=== PATIENT | female | born 1955 | race Caucasian/White ===

== ENCOUNTER → 2019-12-01 | Outpatient (CLI) | payer OTHER ==
[2019-12-01 11:45] LABS: BILIRUBIN,TOTAL 1.1 MG/DL (0.1-1.0); BUN/CREATININE RATIO 20; CALCIUM 9.7 MG/DL (8.5-10.1); CARBON DIOXIDE 26 MMOL/L (21-32); CHLORIDE 101 MMOL/L (98-107); CREATININE SERUM 0.93 MG/DL (0.60-1.30); GFR ESTIMATED > 60; GLUCOSE 105 MG/DL (70-105); POTASSIUM 3.8 MMOL/L (3.6-5.0); SODIUM 140 MMOL/L (135-145)
[2019-12-01 11:46] LABS: ALANINE AMINOTRANSFERASE 23 U/L (0-55); ALBUMIN 4.5 GM/DL (3.2-4.5); ALKALINE PHOSPHATASE 91 U/L (40-136); TOTAL PROTEIN 7.3 GM/DL (6.4-8.2)
[2019-12-01 14:50] LABS: CHOLESTEROL 160 MG/DL (< 200); HDL CHOLESTEROL 39 MG/DL (40-60); TRIGLYCERIDES 175 MG/DL (<150); VLDL CHOLESTEROL 35 MG/DL (5-40)
== END ==
LOC: LAB FS 10:30
PROVIDERS: ATTEND Family Medicine
DX: E03.9 Hypothyroidism, unspecified (principal); E78.5 Hyperlipidemia, unspecified
CPT/HCPCS: 36415; 80053; 80061; 84443

== ENCOUNTER 2020-02-09 05:34 | Outpatient (RCR) | payer OTHER ==
[~2020-02-09] VITALS: Ht 170.2 cm; Wt 78.6 kg
[~2020-02-09 05:34] MED LIST: ATOR10TA66 PO; CETI10TA21 PO; HYDR12.56 PO; LEVO112T2 PO; MAGN250T2 PO; OMEP20TA7 PO; OMG1KC PO
== END 2020-02-09 13:38 | disposition home or self-care (01) ==
LOC: PREOP 05:34
PROVIDERS: ATTEND Surgery
DX: Z01.812 Encounter for preprocedural laboratory examination (principal); Z20.828 Contact with and (suspected) exposure to other viral communicable diseases; R10.13 Epigastric pain
CPT/HCPCS: 87635

== ENCOUNTER 2020-02-13 08:05 | Day surgery (SDC) | payer OTHER ==
[~2020-02-13] VITALS: Ht 170.2 cm; Wt 78.6 kg
[2020-02-13] MEDS ORDERED: LACTATED RINGERS 1,000 ML IV STA (08:06)
[2020-02-13] MEDS ORDERED: LACTATED RINGERS 1,000 ML IV ONE (08:11)
[2020-02-13] MEDS ORDERED: HURRICAINE EXT TUBE (BENZOCAINE) XX PRN (08:15)
[2020-02-13 08:20] VITALS: BP 158/87
--- NOTE | 2020-02-13 08:24 | Progress Note-Pre Operative ---
Pre-Operative Progress Note H&P Reviewed The H&P was reviewed, patient examined and no changes noted. Time Seen by Provider: 08:20 Date H&P Reviewed: Feb 13, 2020 Time H&P Reviewed: 08:15 Pre-Operative Diagnosis: Epigastric Abd pain MAXI GU DO Feb 13, 2020 08:24
[2020-02-13] MEDS ORDERED: PROPOFOL INJECTION 50 ML IV ONE (08:51)
[2020-02-13] MEDS ORDERED: HURRICAINE EXT TUBE (BENZOCAINE) ONE (08:52)
[2020-02-13] MEDS ORDERED: MIDAZOLAM 2 MG/2 ML (VERSED) VIAL ONE (08:52)
--- OUTSIDE RECORDS SUMMARY | 2020-02-13 08:52 | XMS REPORT | Continuity of Care Document ---
Author Author [facility] Organization [facility] Address Unknown Phone Unavailable Care Team Providers Care A P Mechanic Name Role Phone AMADA MONTERO MD PP Insurance Providers Payer Name Policy Number Subscriber Name Relationship [employer] [id number] Courtney Jeong S 01 Self / Same As Patient Problems No Known Problems or Medical conditions. Allergies, Adverse Reactions, Alerts No known allergies Medications No known medications Response Recorded Date/Time Status not known Unknown Results No Known Relevant Diagnostic Tests, Laboratory Data and/or Discharge Summary.
--- OUTSIDE RECORDS SUMMARY | 2020-02-13 08:52 | XMS REPORT | Continuity of Care Document ---
Author Organization Unknown Address Unknown Phone Unavailable Allergies Active Description Code Type Severity Reaction Onset Reported/Identified Relationship to Patient Clinical Status Yes hydrocodone [id number] Drug Aller gy Unknown Hives 02/08/2020 Medications There is no data. Problems Date Dx Coded Attending Type Code Diagnosis Diagnosed By 12/02/2019 ANGEL KING, NETTIE Carlos Ot E03 .9 HYPOTHYROIDISM, UNSPECIFIED 12/02/2019 ANGEL KING, NETTIE Carlos Ot E78 .5 HYPERLIPIDEMIA, UNSPECIFIED 12/12/2019 ANGEL KING, NETTIE Carlos Ot E03 .9 HYPOTHYROIDISM, UNSPECIFIED 12/12/2019 ANGEL KING, NETTIE Carlos Ot E78 .5 HYPERLIPIDEMIA, UNSPECIFIED Procedures There is no data. Results Test Result Range TSH - 01/03/19 15:54 TSH 0.13 mIU/L 0.40-4.50 LIPID PANEL - 07/05/19 11:01 CHOLESTEROL, TOTAL 173 mg/dL <200 HDL CHOLESTEROL 46 mg/dL >50 TRIGLYCERIDES 130 mg/dL <150 LDL-CHOLESTEROL 104 mg/dL (calc) NRG CHOL/HDLC RATIO 3.8 (calc) <5.0 NON HDL CHOLESTEROL 127 mg/dL (calc) <13 0 CMP - 07/05/19 11:01 GLUCOSE 96 mg/dL 65-99 UREA NITROGEN (BUN) 18 mg/dL 7-25 CREATININE 0.81 mg/dL 0.50-0.99 eGFR NON-AFR. BELGIAN 78 mL/min/1.73m2 > OR = 60 eGFR 90 mL/min/1.73m2 > OR = 60 BUN/CREATININE RATIO NOT APPLICABLE (calc) 6-22 SODIUM 137 mmol/L 135-146 POTASSIUM 3.9 mmol/L 3.5-5.3 CHLORIDE 102 mmol/L 98-110 CARBON DIOXIDE 29 mmol/L 20-32 CALCIUM 9.4 mg/dL 8.6-10.4 PROTEIN, TOTAL 6.9 g/dL 6.1-8.1 ALBUMIN 4.3 g/dL 3.6-5.1 GLOBULIN 2.6 g/dL (calc) 1.9-3.7 ALBUMIN/GLOBULIN RATIO 1.7 (calc) 1.0-2. 5 BILIRUBIN, TOTAL 1.3 mg/dL 0.2-1.2 ALKALINE PHOSPHATASE 81 U/L 33-130 AST 16 U/L 10-35 ALT 22 U/L 6-29 CBC - 07/05/19 11:01 WHITE BLOOD CELL COUNT 4.9 Thousand/uL 3 .8-10.8 RED BLOOD CELL COUNT 4.66 Million/uL 3.8 0-5.10 HEMOGLOBIN 13.3 g/dL 11.7-15.5 HEMATOCRIT 39.4 % 35.0-45.0 MCV 84.5 fL 80.0-100.0 MCH 28.5 pg 27.0-33.0 MCHC 33.8 g/dL 32.0-36.0 RDW 13.2 % 11.0-15.0 PLATELET COUNT 287 Thousand/uL 140-400 MPV 10.7 fL 7.5-12.5 ABSOLUTE NEUTROPHILS 2832 cells/uL 1500- 7800 ABSOLUTE LYMPHOCYTES 1397 cells/uL 850-3 900 ABSOLUTE MONOCYTES 505 cells/uL 200-950 ABSOLUTE EOSINOPHILS 147 cells/uL 15-500 ABSOLUTE BASOPHILS 20 cells/uL 0-200 NEUTROPHILS 57.8 % NRG LYMPHOCYTES 28.5 % NRG MONOCYTES 10.3 % NRG EOSINOPHILS 3.0 % NRG BASOPHILS 0.4 % NRG TSH - 07/05/19 11:01 TSH 0.09 mIU/L 0.40-4.50 HEP C ANTIBODY - 07/19/19 13:05 HEPATITIS C ANTIBODY NON-REACTIVE NON-R EACTIVE SIGNAL TO CUT-OFF 0.01 <1.00 Coronavirus SARS-CoV-2 SO 2018 - 0 07:56 Coronavirus Ab [Units/volume] in Serum Negative Negative Encounters ACCT No. Visit Date/Time Discharge Status Pt. Type Provider Facility Loc./Unit Complaint [id number] 07/19/2019 11:20:00 07/19/2019 23:59: 59 CLS Outpatient [facility] [id number] 07/19/2019 11:20:00 Document Registration [id number] 07/05/2019 09:40:00 Document Registration [id number] 01/03/2019 15:40:00 Document Registration [id number] 02/09/2020 05:34:00 13:38:00 DIS Outpatient MAXI GU DO [facility] PREOP EGD [id number] 02/06/2020 09:00:00 23:59:59 CLS Preadmit MAXI GU DO [facility] ENDO EPIGASTRIC ABD PAIN [id number] 12/01/2019 10:30:00 23:59:59 CLS Outpatient ANGEL KING, NETTIE Carlos [facility] LAB FS TSH CMP LIPID [id number] 07/29/2013 20:56:00 013 07:15:00 DIS Outpatient [id number] 06/06/2013 20:12:00 013 06:30:00 DIS Outpatient [id number] 04/27/2013 20:00:00 013 02:10:00 DIS Outpatient
[2020-02-13 09:30] VITALS: BP 138/72
--- NOTE | 2020-02-13 09:32 | Progress Note-Post Operative ---
Post-Operative Progess Note Surgeon (s)/Specialist Physician (s) Surgeon MAXI GU DO Specialist Physician: none Pre-Operative Diagnosis Epigastric Abd pain Post-Operative Diagnosis Gastritis hiatal hernia Procedure & Operative Findings Date of Procedure 02/13/20 Procedure Performed/Findings EGD with bx Anesthesia Type IV sedation by U.S. SENATOR Estimated Blood Loss Estimated blood loss (mL): scant Specimens/Packing Specimens Removed antral bx body of stomach bx GE jxn bx MAXI GU DO Feb 13, 2020 09:32
--- NOTE | 2020-02-13 09:34 | Endoscopy Discharge Instruct ---
Endo Procedure/Findings Findings 1.: Gastritis 2.: Hiatal Hernia Discharge Instructions - Activity: You might feel a little sleepy until tomorrow. This is due to the medicine you received to relax you. Until tomorrow, you should: NOT drive a car, operate machinery or power tools. NOT drink any alcoholic beverages. NOT make any important decisions or sign importortant papers. Do not return to work until tomorrow, unless otherwise instructed. Resume previous activities tomorrow. Diet: Start by taking liquids. If you tolerate liquids, advance to solid food. make appointment for one week 1.: EGD in 3 years Notify Physician - If you experience excessive bleeding, unusual abdominal pain, fever, or chest p ain, contact your doctor immediately. MAIX GU DO Feb 13, 2020 09:34
[2020-02-13 09:35] VITALS: BP 143/76
[2020-02-13 09:55] VITALS: BP 142/86
[2020-02-13 10:10] VITALS: BP 142/86
--- NOTE | 2020-02-13 11:53 | Anesthesia-General Post-Op ---
MAC Patient Condition Mental Status/LOC: Same as Preop Cardiovascular: Satisfactory Nausea/Vomiting: Absent Respiratory: Satisfactory Pain: Controlled Complications: Absent Post Op Complications Complications None Follow Up Care/Instructions Patient Instructions None needed. Anesthesiology Discharge Order Discharge Order Patient is doing well, no complaints, stable vital signs, no apparent adverse anesthesia problems. No complications reported per nursing. TERELL HDZ CRNA Feb 13, 2020 11:53
--- NOTE | 2020-02-14 03:15 | OPERATIVE REPORT ---
DATE OF SERVICE: PREOPERATIVE DIAGNOSIS: Epigastric abdominal pain. POSTOPERATIVE DIAGNOSES: Gastritis, hiatal hernia. PROCEDURE: EGD with biopsy. SURGEON: Steven Solares DO EIGHT SECTION BLOWER: None. ANESTHESIA: IV sedation by the WELFARE PROJECT MANAGER. SPECIMEN: Biopsy of the antrum, biopsy of body of stomach, biopsy of the GE junction. BLOOD LOSS: Scant. FLUIDS: Per anesthesia. POSTOPERATIVE CONDITION: Stable. INDICATION FOR PROCEDURE: The patient is a 64-year-old female, who has been having some epigastric abdominal pain and needed EGD for workup. FINDINGS: The patient had some gastritis and hiatal hernia, possibly some esophagitis. Picture was taken. Biopsy done. PROCEDURE NOTE: After informed consent was obtained, the patient was brought to the endoscopy suite, placed in bed in left lateral decubitus position. She was administered IV sedation by the WELFARE PROJECT MANAGER, who then monitored her vitals the entire time, heart rate, blood pressure and pulse ox and the scope was inserted down the mouth through the esophagus into the stomach. In the stomach, noted some gastritis in the antrum, took a picture, pushed into the duodenum. Duodenum looked fine. Pulled back and did a biopsy of the antrum, then retroflexed the scope, saw a small hiatal hernia, took a picture and then did a biopsy of body of stomach and then pulled the scope into the GE junction, noted some changes at the Z line, possibly some esophagitis and did a biopsy of the GE junction, then pushed the scope back into the stomach, suctioned all the air out and then pulled the scope up the esophagus and out the mouth. The patient tolerated the procedure, recovered in endoscopy suite. Job ID: [id number] DocumentID: [id number] Dictated Date: 02/13/2020 16:51:36 Dice Dealer Date: 02/14/2020 03:15:25 Dictated By: STEVEN SOLAERS DO
== END 2020-02-13 10:10 | disposition home or self-care (01) ==
LOC: ENDO 08:05
PROVIDERS: ATTEND Surgery
DX: K29.70 Gastritis, unspecified, without bleeding (principal); K44.9 Diaphragmatic hernia without obstruction or gangrene; K31.89 Other diseases of stomach and duodenum; K21.0 Gastro-esophageal reflux disease with esophagitis; E03.9 Hypothyroidism, unspecified; I10 Essential (primary) hypertension; E78.5 Hyperlipidemia, unspecified; J30.2 Other seasonal allergic rhinitis; Z88.5 Allergy status to narcotic agent; Z79.890 Hormone replacement therapy; Z79.899 Other long term (current) drug therapy

== ENCOUNTER → 2020-05-30 | Outpatient (CLI) | payer OTHER ==
[~2020-05-30] MED LIST changes: -CETI10TA21 PO; +CETI10TA49 PO
[2020-05-30 11:43] LABS: BUN/CREATININE RATIO 18; CARBON DIOXIDE 28 MMOL/L (21-32); CHLORIDE 103 MMOL/L (98-107); CREATININE SERUM 0.93 MG/DL (0.60-1.30); GFR ESTIMATED > 60; GLUCOSE 97 MG/DL (70-105); POTASSIUM 3.6 MMOL/L (3.6-5.0); SODIUM 141 MMOL/L (135-145)
[2020-05-30 11:44] LABS: ALANINE AMINOTRANSFERASE 19 U/L (0-55); ALBUMIN 4.5 GM/DL (3.2-4.5); ALKALINE PHOSPHATASE 102 U/L (40-136); BILIRUBIN,TOTAL 1.3 MG/DL (0.1-1.0); CALCIUM 9.8 MG/DL (8.5-10.1); TOTAL PROTEIN 7.3 GM/DL (6.4-8.2)
[2020-05-30 15:12] LABS: CHOLESTEROL 176 MG/DL (< 200); HDL CHOLESTEROL 43 MG/DL (40-60); TRIGLYCERIDES 151 MG/DL (<150); VLDL CHOLESTEROL 30 MG/DL (5-40)
== END ==
LOC: LAB FS 10:30
PROVIDERS: ATTEND Family Medicine
DX: I10 Essential (primary) hypertension (principal); E03.9 Hypothyroidism, unspecified
CPT/HCPCS: 36415; 80053; 80061; 84443

== ENCOUNTER → 2021-01-04 | Outpatient (CLI) | payer OTHER | LOC: LABNPT 06:42 | PROVIDERS: ATTEND Orthopaedic Surgery | DX: Z01.812 Encounter for preprocedural laboratory examination (principal); Z20.822 Contact with and (suspected) exposure to COVID-19 | CPT/HCPCS: 87635 ==

== ENCOUNTER → 2021-08-14 | Outpatient (CLI) | payer OTHER | LOC: LABNPT 16:15 | PROVIDERS: ATTEND Registered Nurse Emergency | DX: U07.1 COVID-19 (principal); J06.9 Acute upper respiratory infection, unspecified | CPT/HCPCS: 87635 ==

== ENCOUNTER → 2022-04-28 | Outpatient (CLI) | payer MEDICARE, OTHER ==
[~2022-04-28] MED LIST changes: -MAGN250T2 PO; +MAGN250T31 PO; +OMEP20TA56 PO; -OMEP20TA7 PO
== END ==
LOC: CARD 08:08
PROVIDERS: ATTEND Registered Nurse Emergency
DX: I49.3 Ventricular premature depolarization (principal)
CPT/HCPCS: 93225; 93226

== ENCOUNTER → 2022-05-02 | Outpatient (CLI) | payer MEDICARE, OTHER | LOC: CARD 13:00 | PROVIDERS: ATTEND Family Medicine | DX: I51.7 Cardiomegaly (principal); I35.8 Other nonrheumatic aortic valve disorders | CPT/HCPCS: 93306 ==

== ENCOUNTER → 2022-05-15 | Outpatient (CLI) | payer MEDICARE, OTHER ==
[~2022-05-15] VITALS: Ht 167 cm; Wt 77.0 kg
[~2022-05-15] MED LIST changes: +CATHETER FLUSH 10 ML SYR IVP PRN
[2022-05-15 09:12] VITALS: BP 163/93
--- NOTE | 2022-05-15 16:18 | NUCLEAR STRESS TEST ---
TREADMILL NUCLEAR STRESS TEST Date of procedure: 05/15/2022. Primary care provider: Sera Burger MD. Admitting physician: Kenny Reddy Jr., MD. INDICATION: Ventricular tachycardia, unspecified. BASELINE ELECTROCARDIOGRAM: Sinus rhythm with occasional premature ventricular complexes and nonspecific intraventricular conduction delay. STRESS TEST PROCEDURE: The patient was exercised for a total of 5 minutes and 0 seconds of the standard Crispin protocol achieving a maximum MET level of 7. The resting heart rate was 87 bpm and the peak heart rate was 149 bpm, which represents 96% of the maximum predicted heart rate. The resting blood pressure was 150/91 mmHg and the peak blood pressure was 221/68 mmHg. This represents a normal heart rate and a hypertensive blood pressure response to exercise. The test was stopped due to target heart rate attained. There was no chest discomfort during the test. There were premature ventricular complexes throughout the test including 1 ventricular couplet. There were no significant stress induced electrocardiogram changes. The patient exhibited good exercise capacity for age. NUCLEAR PROCEDURE: The patient was administered 10.7 mCi of intravenous technetium 99m Tetrofosmin at rest for the rest images. The patient was subsequently administered 30.1 mCi of intravenous technetium 99 M Tetrofosmin at peak stress for the stress images. Following an appropriate wait after each injection, imaging was obtained. The images were subsequently processed and reformatted in the usual views. Gated imaging was obtained. The image quality was adequate with a mild degree of gastrointestinal and breast attenuation artifact. CT attenuation correction was used as a adjunct to standard imaging. Both the corrected and uncorrected images were reviewed for interpretation. NUCLEAR RESULTS: There was normal myocardial perfusion in all segments without evidence of infarction or ischemia. There was normal left ventricular chamber size with an end-diastolic volume of 27 mL and an end-systolic volume of 7 mL. There was no evidence of transient ischemic dilatation. The TID ratio was 1.11. There was normal wall motion in all segments with a calculated ejection fraction of 75%. IMPRESSION: 1. Normal heart rate and a hypertensive blood pressure response to exercise. 2. There was no chest discomfort or electrocardiogram changes during the test. 3. There were premature ventricular complexes throughout the test including one ventricular couplet. 4. The patient exhibited good exercise capacity for age at 5 minutes of the Crispin protocol. 5. There was normal myocardial perfusion in all segments without evidence of infarction or ischemia. 6. There was normal wall motion in all segments with a calculated ejection fraction of 75%. Certain portions of this document may have been dictated utilizing voice recognition technology. Inherent to this technology, typographical and grammatical errors may exist. As much as I am diligent to identify and correct these mistakes, some errors may remain in the document. KENNY REDDY JR, MD May 15, 2022 16:18
== END ==
LOC: CARD 07:34
PROVIDERS: ATTEND Internal Medicine Cardiovascular Disease
DX: I47.20 Ventricular tachycardia, unspecified (principal)
CPT/HCPCS: 78452; 93017; A9502

== ENCOUNTER → 2022-06-18 | Outpatient (CLI) | payer MEDICARE, OTHER ==
[~2022-06-18] MED LIST changes: -CATHETER FLUSH 10 ML SYR IVP PRN
== END ==
LOC: CARD 08:29
PROVIDERS: ATTEND Internal Medicine Cardiovascular Disease
DX: I47.20 Ventricular tachycardia, unspecified (principal)
CPT/HCPCS: 93225; 93226

== ENCOUNTER 2023-05-20 06:04 | Outpatient (CLI) | payer MEDICARE, OTHER ==
[~2023-05-20] VITALS: Ht 168.9 cm; Wt 79.4 kg
[2023-05-20] MEDS ORDERED: LEVO5TAB28 PO (13:51)
[2023-05-20] MEDS ORDERED: FAMO-356 PO (13:51)
[2023-05-20] MEDS ORDERED: MTP100TCR PO (13:51)
== END 2023-05-20 14:03 | disposition home or self-care (01) ==
LOC: PREOP 06:04
PROVIDERS: ATTEND Surgery
DX: Z01.818 Encounter for other preprocedural examination (principal)

== ENCOUNTER 2023-06-01 07:23 | Day surgery (SDC) | payer MEDICARE, OTHER ==
[~2023-06-01] VITALS: Ht 168.9 cm; Wt 79.4 kg
[~2023-06-01 07:23] MED LIST changes: +FAMO-356 PO; +LEVO5TAB28 PO; +MTP100TCR PO
[2023-06-01] MEDS ORDERED: HURRICAINE EXT TUBE (BENZOCAINE) XX PRN (07:30)
[2023-06-01] MEDS ORDERED: LACTATED RINGERS 1,000 ML 1,000 ML IV STA (07:30)
[2023-06-01] MEDS ORDERED: MIDAZOLAM INJ 2 MG/2 ML VIAL ONE (07:36)
[2023-06-01 07:40] VITALS: BP 147/78
[2023-06-01] MEDS ORDERED: GLYCOPYRROLATE INJ 0.2 MG/ML 2 ML VIAL ONE (09:00)
[2023-06-01 09:40] VITALS: BP 94/50
--- NOTE | 2023-06-01 09:44 | Progress Note-Post Operative ---
Post-Operative Progess Note Surgeon (s)/Biological Science Technician (s) Surgeon MAXI GU DO Biological Science Technician: Jaz Jimenez, MSIII Pre-Operative Diagnosis GERD, Screening Post-Operative Diagnosis Gastritis ??Hiatal hernia Polyps Diverticula Procedure & Operative Findings Date of Procedure 06/01/23 Procedure Performed/Findings EGD with biopsy Colonoscopy with snare polypectomy Colonoscopy with hot biopsy PROCEDURE NOTE: After informed consent was obtained, the patient was brought to the endoscopy suite, placed in bed in left lateral decubitus position. She was administered IV sedation by the FEED MANAGEMENT ADVISOR who then monitored vitals the entire time, heart rate, blood pressure and pulse ox and the scope was inserted down the mouth through the esophagus into the stomach. On the way down, noted some mild esophagitis, took a picture, pushed into the stomach, pushed past the antrum into the duodenum. Duodenum looked good. Pulled back and did a biopsy of antrum, then retroflexed the scope, possibly saw a hiatal hernia, took a picture and then pulled the scope into the GE junction, took another picture of the hiatal hernia and then did a biopsy of the GE junction. Pushed the scope back into the stomach, suctioned all the air out of the stomach. At this point pulled the scope up the esophagus and out the mouth. Switched camera, switched gloves, went down below and started the colonoscopy. Pushed all the way to about 160 cm and pushed into the cecum, took a picture of appendiceal orifice and noted the ileocecal valve. On the way in I saw divertcula and took a picture. I also found two large flat polyps in the descending colon and used the snare to try and remove them. From the cecum, I slowly withdrew the scope insufflating to look circumferentially at the ferrara starting in the cecum, up the ascending colon to the hepatic flexure, then down the transverse colon to the splenic flexure, into the descending colon down into the sigmoid. I found small flat polyps here and elected to remove them with the hot biopsy. Finally, into the rectal vault and retroflexed the scope. Took a picture of the internal hemorrhoids. The patient tolerated the procedure and she recovered in the endoscopy suite. Recommended for repeat colonoscopy in 5 years Anesthesia Type IV sedation by FEED MANAGEMENT ADVISOR Estimated Blood Loss Estimated blood loss (mL): scant Specimens/Packing Specimens Removed antral bx body of stomach bx GE jxn bx Descending colon polyp sigmoid colon polyp DELMAN,MAXI B DO Jun 01, 2023 09:44
[2023-06-01 09:45] VITALS: BP 84/48
--- NOTE | 2023-06-01 09:45 | Endoscopy Discharge Instruct ---
Endo Procedure/Findings Findings 1.: Gastritis 2.: Hiatal Hernia 3.: Polyp 4.: Diverticulosis Discharge Instructions - Activity: You might feel a little sleepy until tomorrow. This is due to the medicine you received to relax you. Until tomorrow, you should: NOT drive a car, operate machinery or power tools. NOT drink any alcoholic beverages. NOT make any important decisions or sign importortant papers. Do not return to work until tomorrow, unless otherwise instructed. Resume previous activities tomorrow. Diet: Start by taking liquids. If you tolerate liquids, advance to solid food. 1.: EGD in 3 years 2.: Colonscopy in 5 years Notify Physician - If you experience excessive bleeding, unusual abdominal pain, fever, or chest pain, contact your doctor immediately. Follow-Up: Other Follow up in my office in one week MAXI GU DO Jun 01, 2023 09:45
[2023-06-01 09:50] VITALS: BP 82/51
--- NOTE | 2023-06-01 10:42 | Anesthesia-General Post-Op ---
MAC Patient Condition Mental Status/LOC: Same as Preop Cardiovascular: Satisfactory Nausea/Vomiting: Absent Respiratory: Satisfactory Pain: Controlled Complications: Absent Post Op Complications Complications None Follow Up Care/Instructions Patient Instructions None needed. Anesthesiology Discharge Order Discharge Order Patient is doing well, no complaints, stable vital signs, no apparent adverse anesthesia problems. No complications reported per nursing. NARA CUEVAS CRNA Jun 01, 2023 10:41
[2023-06-01 10:45] VITALS: BP 106/58
== END 2023-06-01 10:45 | disposition home or self-care (01) ==
LOC: ENDO 07:23
PROVIDERS: ATTEND Surgery
DX: Z12.11 Encounter for screening for malignant neoplasm of colon (principal); D12.4 Benign neoplasm of descending colon; K63.5 Polyp of colon; K57.30 Diverticulosis of large intestine without perforation or abscess without bleeding; K29.70 Gastritis, unspecified, without bleeding; K64.8 Other hemorrhoids; K29.50 Unspecified chronic gastritis without bleeding; K31.89 Other diseases of stomach and duodenum; K21.00 Gastro-esophageal reflux disease with esophagitis, without bleeding